=== PATIENT | male | born 1950 | race Caucasian/White ===

== ENCOUNTER 2023-06-11 16:14 | Emergency (ER) | payer OTHER ==
[~2023-06-11] VITALS: Ht 157.5 cm; Wt 78.0 kg
[~2023-06-11 16:14] MED LIST: MECL-159 PO
[2023-06-11 16:23] VITALS: TEMP 98.4
[2023-06-11] MEDS ORDERED: IPRATROPIUM NEB FS 0.5 MG/2.5 ML AMPUL.NEB NEB ONE (17:00)
[2023-06-11] MEDS ORDERED: methylPREDNISolone SOD SUCC 125 MG/2ML VIAL IV ONE (17:00)
[2023-06-11] MEDS ORDERED: ALBUTEROL FS 2.5 MG/3 ML VIAL.NEB CONTNEB ONE (17:00)
[2023-06-11 17:16] LABS: BASOPHILS # (AUTO) 0.1 K/uL (0.0-0.2); BASOPHILS % (AUTO) 0.9 % (0.0-2.0); EOSINOPHILS # (AUTO) 0.2 K/uL (0.0-0.7); EOSINOPHILS % (AUTO) 2.3 % (0.0-6.0); HEMATOCRIT 44 % (39-51); HEMOGLOBIN 14.5 g/dL (13.5-17.5); LYMPHOCYTES # (AUTO) 2.3 K/uL (0.8-4.8); MEAN CORPUSCULAR HEMOGLOBIN 28 PG (26.0-33.0); MEAN CORPUSCULAR HGB CONC 33 g/dl (31.0-36.0); MEAN CORPUSCULAR VOLUME 86 fL (80-96); MONOCYTES # (AUTO) 0.8 K/uL (0.1-1.30); MONOCYTES % (AUTO) 8.5 % (2.0-12.0); NEUTROPHILS # (AUTO) 6.1 K/uL (1.8-8.9); NEUTROPHILS % (AUTO) 64.3 % (43.0-81.0); PLATELET COUNT (AUTO) 235 K/uL (150-450); RED BLOOD CELL COUNT(AUTO) 5.14 MIL/uL (4.5-6.0); RED CELL DISTRIBUTION WIDTH 14.6 % (11.5-15.0); WHITE BLOOD COUNT (AUTO) 9.4 K/uL (4.3-11.0)
[2023-06-11] MEDS ORDERED: IPRATROPIUM NEB FS 0.5 MG/2.5 ML AMPUL.NEB ONE (17:22)
[2023-06-11] MEDS ORDERED: ALBUTEROL FS 2.5 MG/3 ML VIAL.NEB ONE (17:22)
[2023-06-11 17:23] VITALS: O2SAT 99
[2023-06-11] MEDS ORDERED: methylPREDNISolone SOD SUCC 125 MG/2ML VIAL ONE (17:30)
[2023-06-11 17:50] LABS: CALCIUM, SERUM 8.5 mg/dL (8.5-10.1); CARBON DIOXIDE 22 mmol/L (21-32); CHLORIDE 107 mmol/L (98-107); CREATININE 0.9 mg/dL (0.6-1.3); GLUCOSE 93 mg/dL (74-106); POTASSIUM 3.7 mmol/L (3.5-5.1); SODIUM SERUM 136 mmol/L (136-145); UREA NITROGEN, BLOOD 17 mg/dL (7-18)
[2023-06-11] MEDS ORDERED: IOHEXOL-350 100 ML VIAL IV ONE (18:02)
[2023-06-11] MEDS ORDERED: IV NS 0.9% 250 ML IV ONE (18:02)
[2023-06-11] MEDS ORDERED: CT SWABBABLE VALVE TRANS SET 1 EA INFUS.SET MC ONE (18:02)
[2023-06-11] MEDS ORDERED: CLOP75TA15 PO (18:07)
[2023-06-11] MEDS ORDERED: ISOS30TA86 PO (18:07)
[2023-06-11] MEDS ORDERED: ATOR40TA PO (18:07)
[2023-06-11] MEDS ORDERED: ASPI-1420 PO (18:07)
[2023-06-11] MEDS ORDERED: ALBU18HF2 IH (18:07)
[2023-06-11] MEDS ORDERED: NIFE-34 PO (18:07)
[2023-06-11] MEDS ORDERED: NITR0.4T48 SL (18:07)
[2023-06-11] MEDS ORDERED: METO-358 PO (18:07)
[2023-06-11] MEDS ORDERED: CARV6.252 PO (18:07)
[2023-06-11] MEDS ORDERED: LISI20TA30 PO (18:07)
[2023-06-11 18:10] LABS: ALANINE AMINOTRANSFERASE 44 U/L (12-78); ALBUMIN 3.2 g/dL (3.4-5.0); ALKALINE PHOSPHATASE 92 U/L (46-116); ASPARTATE AMINOTRANSFERASE 21 U/L (15-37); BILIRUBIN,DIRECT 0.2 mg/dL (0.0-0.2); NT-PRO BNP 59 pg/mL (0-125); TOTAL PROTEIN, SERUM 6.6 g/dL (6.4-8.2)
[2023-06-11 18:40] VITALS: O2SAT 99
[2023-06-11 22:30] VITALS: BP 137/77; O2SAT 94
== END 2023-06-12 01:16 | disposition left against medical advice (07) ==
LOC: ER 16:26
DX: J45.909 Unspecified asthma, uncomplicated (principal); I10 Essential (primary) hypertension; I25.2 Old myocardial infarction; Z20.822 Contact with and (suspected) exposure to COVID-19
CPT/HCPCS: 99285; 96374; 71275; 71045; 87426; 93005; 87804 ×2; 85025; 80048; 80076; 36415; 84484; 83880; 94644; J2930; J7050; Q9967; C9803